=== PATIENT | male | born 1985 | race Caucasian/White ===

== ENCOUNTER 2021-07-11 02:42 | Emergency (ER) | payer BC ==
[~2021-07-11] VITALS: Ht 182.9 cm; Wt 79.4 kg
[~2021-07-11 02:42] MED LIST: Chantix1 MG
== END 2021-07-11 06:05 | disposition home or self-care (01) ==
LOC: ER 02:42
DX: S06.9X1A Unspecified intracranial injury with loss of consciousness of 30 minutes or less, initial encounter (principal); S01.01XA Laceration without foreign body of scalp, initial encounter; S01.112A Laceration without foreign body of left eyelid and periocular area, initial encounter; S00.11XA Contusion of right eyelid and periocular area, initial encounter; R40.2362 Coma scale, best motor response, obeys commands, at arrival to emergency department; R40.2142 Coma scale, eyes open, spontaneous, at arrival to emergency department; R40.2252 Coma scale, best verbal response, oriented, at arrival to emergency department; Z87.891 Personal history of nicotine dependence; Y08.02XA Assault by strike by baseball bat, initial encounter
CPT/HCPCS: 12001; 70450; 99284-25